=== PATIENT | male | born 1965 | race Caucasian/White ===

== ENCOUNTER 2017-10-09 10:37 | Day surgery (SDC) | payer OTHER ==
[~2017-10-09] VITALS: Ht 185.4 cm; Wt 92.0 kg
[2017-10-09] VITALS (9 sets, daily range): BP systolic 150–160; BP diastolic 98–105; PULSE 71–80; RESP 16–18; TEMP 98.2; O2SAT 94–96
[~2017-10-09 10:37] MED LIST: ASPI81TA82 PO; ATEN-100 PO; ATOR40TA49 PO; CLOP75 PO; DAPA5TAB PO; LEVEMIR SQ; LISI-357 PO; METF-324 PO; NITR.4 SL; insulin SQ
[2017-10-09] MEDS ORDERED: IOHEXOL 350 MG/ML 100 ML BTL (for Cath Lab) OTHER ONE (10:38)
[2017-10-09] MEDS ORDERED: IOHEXOL 350 MG/ML 50 ML BTL (for Cath Lab) OTHER ONE (10:38)
[2017-10-09] MEDS ORDERED: INSU1INJ14 SQ (11:25)
[2017-10-09] MEDS ORDERED: ALBI1INJ SQ (11:25)
[2017-10-09] MEDS ORDERED: AMLO5TAB2 PO (11:25)
[2017-10-09] MEDS ORDERED: METF500T PO (11:25)
[2017-10-09] MEDS ORDERED: ROSU1TAB8 PO (11:25)
[2017-10-09] MEDS ORDERED: ISOS30TA3 PO (11:25)
[2017-10-09] MEDS ORDERED: ATEN25TA PO (11:25)
[2017-10-09] MEDS ORDERED: ASPI-516 CHEW (11:25)
[2017-10-09] MEDS ORDERED: MIDAZOLAM HCL 2 MG/2 ML VIAL ONE (12:18)
[2017-10-09] MEDS ORDERED: HEPARIN SODIUM - IV 10,000 UNITS/10 ML VIAL ONE (12:53)
[2017-10-09] MEDS ORDERED: CLOPIDOGREL 300 MG TAB ONE (13:08)
[2017-10-09] MEDS ORDERED: MISC INFORMATION XX ONE (13:15)
[2017-10-09] MEDS ORDERED: TEMAZEPAM 15 MG CAP PO PRN (13:15)
--- NOTE | 2017-10-09 13:15 | CATHPROC ---
[employer] HIS Report Study Information Study Number Admission Scheduled Start Study Start [id number] Oct 09 2017 10:37AM 10/09/2017 Oct 09 2017 12:19PM [place] Service Cardiac Catheterization Admit Source Facility Department Other [facility] - Temperature Inspector Physician and Clinical Staff Initial Hipolito Rodriguez Division Chair Rahul Morales,COLETTE Recorder Lucina Loo ,ZAKN Scrub Osman SewellRT(R) Procedures Performed Procedure Location (Site) Vessel Name Coronary Angiograms LCA Left Coronary Coronary Angiograms RCA Right Coronary Coronary Angiograms AO Arch (A1) Aorta Coronary Angiograms PAREDES-LAD Left Coronary Coronary Angiograms SVG-RCA Right Coronary L Heart Cath Stent SVG-RCA Right Coronary Wire insertion Fem Art (right) Femoral Art Equipment Time Engineer Intern Description Size Mfg Part Number Used/Scraped [id number] 12:54 [employer] WIRE, ASAHI PROWATER 180CM 180CM Used *[id number] TRANSDUCER, TRUWAVE [id number] 12:36 CHINO NAQVI * Used W/STOCKCOCK *[id number] *[id number] [id number] *[id number] [id number] *[id number] *[id number] 12:36 MEDLINE IND[employer] PACK, CCL CUSTOM * Used *[id number] 12:36 Roomlr PACER PEN, SKIN DUAL W/ RULER * Used *[id number] 12:59 MEDTRONIC STENT, 3.5 18 INTEGRITY 3.5 18 Used *[id number] 13:01 [employer]iance MEDICAL 30 SILVER INDEFLATOR Used *[id number] 12:36 [employer] MEDICAL SHEATH, FR6.5 PRELUDE 11CM FR 6.5 038ACT Used *[id number] 12:36 [employer] MEDICAL WIRE, 3MMJ .035 180CM 180CM Used *[id number] 12:36 NAMIC MANIFOLD, 4 PORT * Used *[id number] 12:56 NAMIC TUBING, HIGH PRESSURE 20" 20" Used *[id number] 12:36 NYCOMED OMNIPAQUE, 350 MG, 100ML 100ML [id number] Used [id number] 12:36 [employer] BLANKET,WARM AIR CCL * Used *[id number] Equipment Model, Serial, Lot Number and Expiration Data Description Model Number Serial Number Lot Number Expiration Date STENT, 3.5 18 INTEGRITY [id number] 01-22-2019 History: Current Medications Medication Dosage/Unit Route Frequency Last Date/Time Taken NORVASC ASA 81 10/08/2017 Beta Joselito 10/08/2017 History: Allergies Allergy Reaction No Known Allergies History: Risk Factors Family History of Hypertension Dyslipidemia Previous [place] Previous Heart Failure Premature CAD Yes Yes Yes Yes No Prior Valve Prior PCI Prior PCIDate Prior CABG Prior CABGDate Surgery No Yes 10/13/2014 Yes 10/12/2009 Cerebrovascular Peripheral Artery Chronic Lung On Dialysis Diabetes Diabetes Therapy Disease Disease Disease No Yes No No Yes Oral History: CV Disease Selection Items Known CAD History: Stress Tests Stress or Imaging Studies Performed No History: [place]/CV Data Previous Cath Date Previous CABG Date 10/13/2014 10/12/2009 History: Other Current Smoker Method Quit Packs a Day Years Used Pack Years No Cigarettes 30 Years Ago 1 2 2 Labs Hgb (g/dl) Hct (%) WBC (l/cumm) Platelets (thousands) 11.60-17.00 35.00-51.00 4.00-11.00 150.00-450.00 15.4 44.3 6 189 Glucose (mg/dl) BUN (mg/dl) Creatinine (mg/dl) BUN:Creatinine (1:x) 74.00-106.00 7.00-18.00 0.50-1.30 10.00-20.00 247 16 0.8 20 Na (meq/l) K (meq/l) 136.00-145.00 3.50-5.10 138 4.3 CPK-MB (ng/ML) 0.50-3.60 Not Drawn Medication Medication Total Dose (Bolus/Oral) Medication Total Dosage/Unit 1% XYLOCAINE 10 mL HEPARIN 6500 units OXYGEN 2 l/min VERSED 2 mg Medications (Bolus/Oral) Medication Time Given Dosage/Unit Administered By Reason VERSED 10/09/2017 12:34:03 PM 2 mg Rahul Morales 2 mg VERSED given in lab by Rahul Morales, RN via Peripheral IV. Ordered by Hipolito Pond. 1% XYLOCAINE 10/09/2017 12:36:14 PM 10 mL Hipolito Pond 10 mL 1% XYLOCAINE given in lab by Hipolito Pond in Right Groin via Subcutaneous. Ordered by Hipolito Freeman ms. OXYGEN 10/09/2017 12:38:56 PM 2 l/min Rahul Morales 2 l/min OXYGEN given in lab by Rahul Morales, RN via Nasal. Ordered by Hipolito Pond. HEPARIN 10/09/2017 12:54:44 PM 6500 units Rahul Morales 6500 units HEPARIN given in lab by Rahul Morales, RN via Peripheral IV. Ordered by Hipolito Pond. Medication (Drip) Medication Time Given Dosage/Unit Concentration/Unit Diluent (ml) Solution IV Solutions 10/09/2017 12:24:18 PM 50 mL (IV) NaCl .9 Patient arrived on IV Solutions via Peripheral IV. Pump/Drip Flow using NaCl .9. Ordered by Hipolito Pond. Initial Case Assessment Cardiovascular HR Rhythm NIBP 62 sr 126/79 Edema Present Skin color Skin None Normal Warm Dry Circulatory - Right Pulses Dorsalis Pedis Femoral 1 2 Scale (0,1,2,3,4,d) Circulatory - Left Pulses Dorsalis Pedis Femoral 1 1 Scale (0,1,2,3,4,d) Circulatory - Lower Extremities Color Lower Right Color Lower Left Normal Normal Neurological State Oriented to time-place- Alert Moves all extremities person Respiration - General Respiration Rate SpO2 (%) O2 (lpm) (B/min) 14 96 0 Chronological Log Time Study Chronological Log 12:11:20 Patient arrived via Bed. 12:11:23 Patient Name, D.O.B, / Armband Verified By R.N. 12:11:27 Consent signed by the physician and the patient and verified by the Temperature Inspector staff. Verbal Stimulation=2 Physical Stimulation=2 Airway=2 Respiration=~RESPIRATION~ TOTAL=8. (0=abse nt, 1=limited, 12:19:35 2=present) 12:20:11 Immediate Presedation assesment performed by physician. 12:20:13 Patient has been NPO for More than 6Hrs. 12:20:14 Skin Breakdown- none per patient 12:20:23 A # 20 IV was noted in the Antecubital (left). Grade = 0 Vitals capture started with the following parameters, Patient=Adult, Interval=5 min, Initial Pr qhlzvu=586 mmHg, 12:22:20 Deflation Rate=5 mmHg, Cuff placed on Right Ankle 12:23:34 HR=65 bpm, KBMS=289/75 mmhg, SpO2=95.0 %, Resp=15 B/min, Pain=0, Dao=10, Irizarry=2 12:24:18 Patient arrived on IV Solutions via Peripheral IV. Pump/Drip Flow using NaCl .9. Ordered by Hipolito Pond. 12:24:40 History and physical on the chart or being dictated. Assessment: Initial Case, HR=62 BPM, Rhythm=sr, SRMR=578/79 mmhg, Edema=None, Color=Normal, Ski n = Warm, Dry Right Pulses: Giorgio Ped=1, Femoral=2 Left Pulses: Giorgio Ped=1, Femoral=1 12:24:43 Lower Right Extremities: Color=Normal Lower Left Extremities: Color=Normal Neurological: State=Alert, Ox3, NICHOLSON Respiration: Resp=14 B/min, SpO2=96 %, O2=0 lpm 12:24:56 HR=63 bpm, EIII=800/79 mmhg, SpO2=95.0 %, Resp=13 B/min, Pain=0, Dao=10, Irizarry=2 12:25:27 MD arrived. 12:26:53 HR=61 bpm, YSQY=075/86 mmhg, SpO2=96.0 %, Resp=16 B/min, Pain=0, Dao=10, Irizarry=2 12:28:46 Reference ECG taken 12:28:58 HR=64 bpm, ICRR=390/81 mmhg, SpO2=94.0 %, Resp=16 B/min, Pain=0, Dao=10, Irizarry=2 12:30:55 HR=72 bpm, RUDP=262/85 mmhg, SpO2=97.0 %, Resp=21 B/min, Pain=0, Dao=10, Irizarry=2 12:31:39 Bilateral groins prepped with 2% chlorhexidine, and draped after a 3 minute waiting time. 12:32:42 Pressure channel 1 zeroed. 12:32:55 HR=62 bpm, VDAB=844/89 mmhg, SpO2=97.0 %, Resp=17 B/min, Pain=0, Dao=10, Irizarry=2 12:34:03 2 mg VERSED given in lab by Rahul Morales, COLETTE via Peripheral IV. Ordered by Sawyer Pond 12:34:56 HR=71 bpm, TTYC=310/89 mmhg, SpO2=94.0 %, Resp=15 B/min, Pain=0, Dao=10, Irizarry=2 Time Out. Correct patient, correct procedure, correct physician, power injector not loaded with contrast with surgical 12:35:04 team present. Time Out Concurred by MD and individual staff in procedure. 12:35:20 Case Start 12:36:14 10 mL 1% XYLOCAINE given in lab by Hipolito Pond in Right Groin via Subcutaneous. Ordered by Hipolito Pond. 12:36:57 HR=77 bpm, FWPB=144/78 mmhg, SpO2=92.0 %, Resp=16 B/min, Pain=0, Dao=10, Irizarry=2 12:38:33 Access site was Right Femoral Artery. 12:38:45 A SHEATH, FR6.5 PRELUDE 11CM FR 6.5 was advanced into the Fem Art (right) using the Percuta neous technique. 12:38:56 2 l/min OXYGEN given in lab by Rahul Morales, COLETTE via Nasal. Ordered by Hipolito Pond. 12:39:00 HR=75 bpm, JJJP=336/79 mmhg, SpO2=96.0 %, Resp=19 B/min, Pain=0, Dao=10, Irizarry=2 A JL 4.0 INFINITI CATHETER FR 6 was advanced over a wire. OMNIPAQUE, 350 MG, 100ML 100ML was us ed for 12:39:49 injections. 12:40:57 HR=63 bpm, PAEA=228/68 mmhg, SpO2=98.0 %, Resp=10 B/min, Pain=0, Dao=10, Irizarry=2 12:41:23 The LCA was injected and visualized at various angles. OMNIPAQUE, 350 MG, 100ML 100ML used . Recorded Pressure: Ao, HR=71, Condition=Condition 1 12:41:29 (Aorta) Ao 112/71/89 After removing the current catheter a JR 4.0 INFINITI CATHETER FR 6 was advanced over a WIRE, 3 MMJ .035 180CM 12:42:35 180CM. 12:42:51 HR=78 bpm, HSMQ=500/85 mmhg, SpO2=96.0 %, Resp=14 B/min, Pain=0, Dao=10, Irizarry=2 12:43:01 The RCA was injected and visualized at various angles. OMNIPAQUE, 350 MG, 100ML 100ML used . 12:44:10 The SVG-RCA was injected and visualized at various angles. OMNIPAQUE, 350 MG, 100ML 100ML u sed. 12:44:58 HR=78 bpm, SDYI=900/77 mmhg, SpO2=97.0 %, Resp=15 B/min, Pain=0, Dao=10, Irizarry=2 12:46:57 HR=76 bpm, IWXT=262/90 mmhg, SpO2=98.0 %, Resp=12 B/min, Pain=0, Dao=10, Irizarry=2 12:47:29 A WIRE, 3MMJ .035 180CM 180CM was inserted via Fem Art (right). 12:47:43 Wire removed 12:48:20 The PAREDES-LAD was injected and visualized at various angles. OMNIPAQUE, 350 MG, 100ML 100ML used. 12:48:27 Catheter was removed 12:49:00 HR=79 bpm, LTTC=213/78 mmhg, SpO2=97.0 %, Resp=14 B/min, Pain=0, Dao=10, Irizarry=2 A PIGTAIL STR INFINITI CATHETER FR 6 was advanced over a wire. OMNIPAQUE, 350 MG, 100ML 100ML w as used for 12:49:52 injections. 12:50:57 HR=74 bpm, DTYM=868/82 mmhg, SpO2=97.0 %, Resp=14 B/min, Pain=0, Dao=10, Irizarry=2 12:51:46 The AO Arch (A1) was injected and visualized at various angles. OMNIPAQUE, 350 MG, 100ML 10 0ML used. 12:52:56 HR=74 bpm, VZAK=418/75 mmhg, SpO2=97.0 %, Resp=23 B/min, Pain=0, Dao=10, Irizarry=2 12:54:44 6500 units HEPARIN given in lab by Rahul Morales RN via Peripheral IV. Ordered by Hipolito Murray. 12:54:58 HR=73 bpm, FSMQ=875/76 mmhg, SpO2=97.0 %, Resp=13 B/min, Pain=0, Dao=10, Irizarry=2 After removing the current catheter a RCB GUIDE CATHETER FR 6 was advanced over a WIRE, 3MMJ .0 35 180CM 12:55:05 180CM. 12:56:37 A WIRE, ASAHI PROWATER 180CM 180CM was inserted via Fem Art (right). 12:58:05 HR=71 bpm, JCEY=647/73 mmhg, SpO2=97.0 %, Resp=13 B/min, Pain=0, Dao=10, Irizarry=2 12:58:09 Interventional wire has crossed the lesion 13:00:04 Activated Clotting Time Drawn An STENT, 3.5 18 INTEGRITY 3.5 18 Bare Metal Stent was inserted through a RCB GUIDE CATHETER FR 6 over a 13:00:56 WIRE, ASAHI PROWATER 180CM 180CM. A STENT, 3.5 18 INTEGRITY 3.5 18 was deployed using a 30 SILVER INDEFLATOR at 12 atmospheres for 2 0 seconds in 13:01:05 the SVG-RCA. 13:02:36 Delivery device removed 13:02:42 Wire removed 13:02:56 Catheter was removed 13:03:04 HR=85 bpm, WSTV=398/70 mmhg, SpO2=97.0 %, Resp=13 B/min, Pain=0, Dao=10, Irizarry=2 13:04:18 Case End 13:04:52 A Left Heart Cath was performed. 13:07:00 Sheath(s) left in place, will be removed in Holding Area 13:07:54 ACT (Normal Range 90-180) = 251 13:08:03 HR=74 bpm, DUNO=393/79 mmhg, SpO2=97.0 %, Resp=12 B/min, Pain=0, Dao=10, Irizarry=2 13:08:38 In the Fem Art (right) the sheath was sutured in place by Hipolito Pond. 13:08:42 Sterile dressing applied to site 13:08:43 No case complications noted. 13:08:44 Cine recording checked. 13:08:46 Holding Area notified of successful intervention. 13:08:48 Bedside Report will be given. 13:08:49 Implantable Device card placed in patient's chart. 13:12:36 Vitals capture stopped. 13:12:54 Patient moved to stretcher End Study - Contrast Media Used In Study Contrast Total Opened (mL) Total Used (mL) Total Wasted (mL) Omnipaque 150 150 0 End Study - Maximum Contrast Load Max Contrast Load (mL) 577.0 End Study - Radiation Exposure Fluoro Time (minutes) 6.5 End Study - Patient Disposition Complications Transferred To Interventional Outcome No Temperature Inspector Holding successful
--- NOTE | 2017-10-09 13:30 | MA ---
cc: Hipolito Pond MD DATE: 10/09/2017 PROCEDURE: Catheterization PROCEDURE NOTE: The patient was prepped and draped in the usual fashion. A 6 sheath was inserted percutaneously into the right femoral artery. Coronary angiography was done with Leah preformed catheters. Coronary grafts were identified using the right coronary artery catheter. Ascending aortography was done with a pigtail catheter. RESULTS: Aortic pressure is 130/80. Left ventriculography was not done. CORONARY ARTERIOGRAPHY: The left main coronary was normal. The left anterior descending artery was totally occluded just after the takeoff from the left main. The left circumflex artery was widely patent. Mild luminal irregularities were present, but no high-grade stenoses were seen. The right coronary artery was totally occluded essentially just after the takeoff from the aorta. A vein graft to the right coronary was present in its distal portion. A stenosis of 80% or greater was present. The distal portion of the artery appeared to be without significant disease. The internal mammary artery graft to the LAD was also widely patent with good flow into the proximal and distal LAD. Ascending aortography demonstrated no other vein grafts present. No AI was present. The aortic root was normal in size. Following consent, heparin was administered with an ACT of 251 seconds. An RCB guide was used to cannulate the right coronary graft and a [employer] wire advanced into the distal right coronary. Primary stenting was accomplished with a 3.5 x 18 mm bare-metal stent with dilatation to 14 atmospheres. There was essentially 0 residual. KATHY 3 flow was present both pre and post-procedure. At the end of the procedure, the catheters were withdrawn. The sheath was sutured into place. The patient left the room in good condition. CONCLUSION: Successful PTCA and stenting of the right coronary graft. Hipolito Pond MD DLShira/JANINE , 01:16 PM , 01:29 PM
[2017-10-09] MEDS ORDERED: PLAV75TA29 PO (13:32)
[2017-10-09] MEDS ORDERED: HEPARIN SODIUM - IV 10,000 UNITS/10 ML VIAL IV ONE (16:30)
[2017-10-09] MEDS ORDERED: oxyCODONE/ACETAMINOPHEN 5 MG/325 MG TAB PO PRN (16:30)
[2017-10-09] MEDS ORDERED: CLOPIDOGREL 300 MG TAB PO ONE (16:30)
[2017-10-09] MEDS ORDERED: MIDAZOLAM HCL 2 MG/2 ML VIAL IV ONE (16:30)
[2017-10-09] MEDS ORDERED: GLUCAGON 1 MG/ML VIAL OTHER PRN (17:00)
[2017-10-09] MEDS ORDERED: DEXTROSE 50% IN WATER 50 ML VIAL(D50) IV PUSH PRN (17:00)
[2017-10-09] MEDS: LOW DOSE INSULIN NOVOLIN REGULAR SUPPLEMENTAL SCALE SQ SCH ×2 (18:17→21:52)
[2017-10-09] MEDS ORDERED: METOPROLOL TARTRATE 25 MG TAB PO SCH (21:00)
[2017-10-09] MEDS ORDERED: ATORVASTATIN 40 MG TAB PO SCH (21:00)
[2017-10-09] MEDS ORDERED: ACETAMINOPHEN 325 MG TAB PO PRN (21:30)
[2017-10-10] VITALS (9 sets, daily range): BP systolic 136–153; BP diastolic 79–99; PULSE 76–88; RESP 16; TEMP 98.4–98.7; O2SAT 95–98
--- NOTE | 2017-10-10 08:31 | PD.CARD.PN ---
Subjective Subjective Remarks Doing well since cath yesterday. No arrhythmias noted on telemetry. Patient denies any chest pain, shortness of breath, palpitations. No issues with groin access site. Patient is ready to go home. Objective Medications Current Medications Medications (Trade) Dose Ordered Sig/Maeve Route Start Time Stop Time Status Last Admin (Restoril) 15 mg HS PRN PO 10/09/17 13:15 10/09/17 21:51 (Aspirin Chew) 81 mg DAILY PO 10/10/17 09:00 (Plavix) 75 mg DAILY PO 10/10/17 09:00 (Lopressor) 25 mg BID PO 10/09/17 21:00 10/09/17 21:40 (Prinivil) 5 mg DAILY PO 10/10/17 09:00 (Lipitor) 40 mg HS PO 10/09/17 21:00 10/09/17 21:00 (Percocet 5-325 Mg) 1 tab Q4H PRN PO 10/09/17 16:30 10/09/17 16:33 (D50w (Vial) Inj) 50 ml UNSCH PRN IV PUSH 10/09/17 17:00 (Glucagon Inj) 1 mg UNSCH PRN OTHER 10/09/17 17:00 (NovoLIN R SUPPLEMENTAL SCALE) 1 ACHS SLIDING SCALE SQ 10/09/17 17:00 10/09/17 21:52 (Norvasc) 5 mg DAILY PO 10/10/17 09:00 (Imdur) 30 mg DAILY PO 10/10/17 09:00 Patient Own Medication PT OWN MED: TANZEUM (ALBIGLUTI... Q7D SQ 10/15/17 09:00 Future Hold (Tylenol) 650 mg Q6H PRN PO 10/09/17 21:30 10/09/17 21:40 Vital Signs / I&O Vital Signs Date Time Temp Pulse Resp B/P (MAP) Pulse Ox O2 Delivery O2 Flow Rate FiO2 10/10/17 06:00 82 10/10/17 05:00 82 10/10/17 04:13 76 10/10/17 04:13 98.4 78 16 140/87 (104) 96 10/10/17 04:00 82 10/10/17 03:00 80 10/10/17 02:00 78 10/10/17 01:00 83 10/10/17 00:00 88 16 136/79 (98) 95 10/10/17 00:00 85 10/10/17 00:00 88 10/09/17 23:01 16 10/09/17 22:00 80 10/09/17 22:00 78 10/09/17 21:00 80 10/09/17 20:00 77 16 160/98 (118) 96 10/09/17 20:00 79 10/09/17 20:00 76 10/09/17 19:00 76 10/09/17 18:00 72 10/09/17 17:28 16 10/09/17 17:00 78 10/09/17 16:45 76 10/09/17 16:40 98.2 76 18 150/98 (115) 96 10/09/17 13:28 94 Room Air 10/09/17 11:15 71 18 157/105 (122) 94 I/O 10/09/17 10/09/17 10/09/17 10/10/17 10/10/17 10/10/17 07:00 15:00 23:00 07:00 15:00 23:00 Intake Total 240 ml Output Total 700 ml Balance -460 ml Intake Oral 240 ml Output Urine Total 700 ml Physical Exam GENERAL: Well-developed well-nourished. In no acute distress. NECK: No carotid bruits. No JVD. CARDIOVASCULAR: Regular rate and rhythm. No murmur appreciated. RESPIRATORY: No accessory muscle use. Clear to auscultation. Breath sounds equal bilaterally. MUSCULOSKELETAL: No clubbing or cyanosis. No edema. NEUROLOGICAL: Awake and alert. Normal speech. SKIN: Right groin with no ecchymosis or tenderness to palpation. Assessment and Plan Assessment and Plan CAD: Status post cath 10/09 with PTCA and stenting of right coronary graft lesion. Doing well. Plavix prescription sent to pharmacy. Discharge home today for outpatient follow-up. Discussed Condition With Patient, Dar Ayala Oct 10, 2017 08:31
[2017-10-10] MEDS ORDERED: LISINOPRIL 5 MG TAB PO SCH (09:00)
[2017-10-10] MEDS ORDERED: amLODIPine BESYLATE 5 MG TAB PO SCH (09:00)
[2017-10-10] MEDS ORDERED: ASPIRIN 81 MG CHEW TAB PO SCH (09:00)
[2017-10-10] MEDS ORDERED: CLOPIDOGREL 75 MG TAB PO SCH (09:00)
[2017-10-10] MEDS ORDERED: ISOSORBIDE MONONITRATE 30 MG CR TAB (IMDUR) PO SCH (09:00)
[2017-10-15] MEDS ORDERED: TANZEUM 30 MG SQ SCH (09:00)
== END 2017-10-10 09:17 | disposition home or self-care (01) ==
LOC: HDOC 10:37 → HDIC 10:38 → HCIS 16:55 → HDOC 10-10 09:17
PROVIDERS: ATTEND Internal Medicine Cardiovascular Disease
DX: I25.118 Atherosclerotic heart disease of native coronary artery with other forms of angina pectoris (principal); I25.82 Chronic total occlusion of coronary artery; E11.9 Type 2 diabetes mellitus without complications; E78.5 Hyperlipidemia, unspecified; I65.22 Occlusion and stenosis of left carotid artery; H47.611 Cortical blindness, right side of brain; H54.62 Unqualified visual loss, left eye, normal vision right eye; Z79.82 Long term (current) use of aspirin; Z79.4 Long term (current) use of insulin; Z86.73 Personal history of transient ischemic attack (TIA), and cerebral infarction without residual deficits; Z87.891 Personal history of nicotine dependence
CPT/HCPCS: 82948; 85002; 85347; 92928; 93454; 93567; 99152; 99153; C1769; C1876; C1887; C1893; J1644; J2250; Q9967